=== PATIENT | male | born 1980 | race African-American/Black ===

== ENCOUNTER 2020-02-01 21:11 | Observation (INO) ==
[2020-02-01 22:08] LABS: Basophils % 0.4 % (0.0-0.8); Eosinophils # 0.5 10*3/uL (0.0-0.87); Eosinophils % 4.7 % (0.00-10.9); Hematocrit 42.1 VOL% (42.0-52.0); Hemoglobin 14.7 GM/DL (14.0-18.0); Immature Granulocytes % 0.4 %; Immature Granulocytes Absolute 0.04 #; Lymphocytes # 1.3 10*3/uL (1.4-4.0); Mean Corpuscular HGB Conc 34.9 GM/DL (32-36); Mean Corpuscular Volume 79.7 FL (87-102); Mean Platelet Volume 9.2 FL (9.6-12.0); Monocytes % 5.6 % (1.7-12.7); Neutrophils % 76.9 % (38.7-73.9); Platelet Count 213 T/CUMM (130-400); Red Blood Count 5.28 MC/CUMM (3.8-5.5); Red Cell Distribution Width 12.3 % (9.3-17.3); White Blood Count 10.5 T/CUMM (4-12)
[2020-02-01 22:19] LABS: Albumin 3.5 G/DL (3.4-5.0); Bilirubin,Total 0.7 MG/DL (0.2-1.0); Calcium 9.6 MG/DL (8.5-10.1); Osmolality,Calculated 267.2 MOS/KG (273-304); Total Protein 8.6 G/DL (6.4-8.3)
[2020-02-01 22:24] LABS: INR 1.1; PT Patient Result 11.9 SECS (9.8-11.9)
[2020-02-01] MEDS ORDERED: LACTATED RINGERS 1,000 ML IV ONE (23:57)
[2020-02-02] MEDS ORDERED: ENOXAPARIN 100 MG/ML SYRINGE SUBCUT STA (01:16)
[2020-02-02 01:25] LABS: Bilirubin,Urine Negative (Negative); Blood, Urine Negative (Negative); Glucose,Urine (UA) Negative (Negative); Ketones,Urine 5 mg/dL (Negative); Mucus,Urine Occasional /LPF (Occasional); Nitrite,Urine Negative (Negative); Protein,Urine Negative; RBC,Urine 1 /HPF (0-4); Squamous Epithelial Cell,Urine Occasional /HPF (0-10); Urine Appearance CLEAR (Clear); Urine Color Yellow (Yellow); Urine Specific Gravity > 1.060 (1.001-1.035); WBC,Urine <1 /HPF (0-6)
[2020-02-02] MEDS ORDERED: ACETAMINOPHEN 325 MG TABLET PO PRN (01:53)
[2020-02-02] MEDS ORDERED: guaiFENesin/DM ER 600-30 MG TABLET PO PRN (01:53)
[2020-02-02] MEDS ORDERED: DEXTROSE 50% 25 GM/50 ML VIAL IV PRN (01:53)
[2020-02-02] MEDS ORDERED: GLUCAGON 1 MG VIAL IM PRN (01:53)
[2020-02-02] MEDS ORDERED: NICOTINE 21 MG/24 HR PATCH TRANSDERM PRN (01:53)
[2020-02-02] MEDS ORDERED: ONDANSETRON 4 MG/2 ML VIAL IV PRN (01:53)
[2020-02-02] MEDS ORDERED: ALUMINUM/MAGNES/SIMETH MAX STR 30 ML UDCUP PO PRN (01:53)
[2020-02-02] MEDS ORDERED: diphenhydrAMINE CAP 25 MG CAPSULE PO PRN (01:53)
[2020-02-02] MEDS ORDERED: hydrALAZINE 20 MG/1 ML VIAL IV PRN (01:53)
[2020-02-02] MEDS ORDERED: MORPHINE 4 MG/1 ML VIAL IV PRN (01:53)
[2020-02-02] MEDS: SODIUM CHLORIDE 0.9% 1,000 ML IV SCH ×2 (04:05→13:49)
[2020-02-02] MEDS ORDERED: INFLUENZA VIRUS VACCINE 0.5 ML SYRINGE IM ONE (06:33)
[2020-02-02] MEDS: APIXABAN 5 MG TABLET PO SCH ×2 (09:20→21:20)
[2020-02-02] MEDS: LACTULOSE 20 GM/30 ML UDCUP PO SCH ×4 (09:20→21:20)
[2020-02-02] MEDS: DOCUSATE SODIUM 100 MG CAPSULE PO SCH ×2 (09:20→21:20)
[2020-02-02] MEDS ORDERED: SODIUM PHOSPHATE ENEMA 133 ML BOTTLE RECTAL PRN (15:31)
[2020-02-02] MEDS ORDERED: SODIUM PHOSPHATE ENEMA 133 ML BOTTLE RECTAL ONE (15:32)
[2020-02-03] MEDS: LACTULOSE 20 GM/30 ML UDCUP PO SCH ×6 (01:29→23:36)
[2020-02-03] MEDS: SODIUM CHLORIDE 0.9% 1,000 ML IV SCH ×3 (02:46→15:22)
[2020-02-03] MEDS: DOCUSATE SODIUM 100 MG CAPSULE PO SCH ×2 (08:54→20:04)
[2020-02-03] MEDS: APIXABAN 5 MG TABLET PO SCH ×2 (08:54→21:07)
[2020-02-04] MEDS: LACTULOSE 20 GM/30 ML UDCUP PO SCH ×4 (02:57→13:06)
[2020-02-04 06:49] LABS: Calcium 8.8 MG/DL (8.5-10.1); Osmolality,Calculated 275.5 MOS/KG (273-304)
[2020-02-04] MEDS: APIXABAN 5 MG TABLET PO SCH (08:20)
[2020-02-04] MEDS: DOCUSATE SODIUM 100 MG CAPSULE PO SCH (08:36)
[2020-02-04 12:30] VITALS: BP 119/71
== END 2020-02-04 14:16 | disposition home or self-care (01) ==
LOC: N.EDINP 21:11 → N.ED 21:11 → SUATTDRO 02-02 01:53 → N.EDINP 02-02 02:21 → N.TELES 02-02 02:46
PROVIDERS: ADMIT Internal Medicine; ATTEND Internal Medicine